=== PATIENT | female | born 1975 | race African-American/Black ===

== ENCOUNTER → 2017-01-24 | Day surgery (SDC) | payer OTHER, SELFPAY ==
[~2017-01-24] MED LIST: FERROUS SULFATE PO; METHIMAZOLE10 MG PO; PROPRANOLOL HCL10 M1 PO; TYLENOL WITH C1 EACH PO
--- NOTE | ~2017-01-24 | OR ---
Unit #: [id number] #: [id number] Patient: HARSHIL VALIENTE [id number] [address] [place], [place] [address] [id number] O MR#: [id number] NAME: HARSHIL VALIENTE ROOM: Date of Procedure: 01/24/2017 Admission Date: 01/24/2017 Surgeon: Mikey Caban M.D. : 1975 Attending Physician: Mikey Caban M.D. Referring Physician: Mikey Caban M.D. Primary Care Physician: Ruth Huitron M.D. OPERATIVE REPORT PREOPERATIVE DIAGNOSES The patient presented with history of iron deficiency anemia, anemia of chronic gastrointestinal blood loss. In addition, she has history of presence of blood in the stool. PROCEDURES PERFORMED Upper gastrointestinal endoscopy and colonoscopy with internal hemorrhoidal band ligation. POSTOPERATIVE DIAGNOSES For upper endoscopy: 1. Completely normal examination up to third part of duodenum. For colonoscopy: 1. The patient had medium-sized internal hemorrhoids seen at the anal verge. Two of these were treated using internal hemorrhoidal band ligation. 2. Rest of the examination up to cecum and terminal ileum was normal. The quality of the prep was excellent. RECOMMENDATIONS 1. The patient is advised to avoid straining of the stool for the next couple of days. In addition, she will use p.r.n. Dulcolax and pain medicine in the form of hydrocodone/acetaminophen in case of any rectal pain. 2. She will be followed up in the office in 3 to 4 months' time. SEDATION USED MAC. DESCRIPTION OF PROCEDURE Following detailed explanation of potential risks and complications of an upper endoscopy and a colonoscopy, namely perforation, bleeding, and complications related to sedation, the patient was brought to GI lab and laid in the left lateral decubitus position. Lubricated tip of the Olympus video upper endoscope was passed through the bite block into the proximal esophagus under direct vision. The entire esophageal mucosa was examined and appeared normal. Z-line was nicely demarcated, there being no esophagitis or hiatus hernia. The scope was then advanced into the gastric cavity and the latter was insufflated. Mucosa of the fundus, body, and antrum examined and appeared unremarkable. Pylorus was intubated with visualization of the normal duodenal bulb and second and third part of the duodenum. Upon withdrawal and retroflexion, incisura, Unit #: [id number] #: [id number] Patient: HARSHIL VALIENTE cardia, and greater curve examined and no additional findings noted. The scope was then withdrawn in the distal esophagus. The entire esophageal mucosa was examined all the way up to pharynx. No additional findings noted. The examination table was then turned by 180 degrees and the patient was positioned for a colonoscopy. A digital rectal examination was performed, which was normal. Lubricated tip of the Olympus video colonoscope was inserted through the anus and advanced under direct vision. The scope was advanced and passed up to sigmoid into descending colon. No diverticula were noticed in this area. The scope tip was then navigated all the way up to cecum with visualization of the ileocecal valve and the appendiceal orifice. Preparation was excellent with good visualization and photodocumentation was obtained. Last several inches of the terminal ileum also visualized after intubation of the ileocecal valve and appeared normal. Successive segments of the colonic mucosa were examined upon withdrawal and appeared unremarkable. There being no polyps, mass lesions, AVMs, or diverticula. The patient was noted to have medium-sized internal hemorrhoids noted, both on the antegrade examination as well as during retroflexion in the rectum. The scope was then withdrawn. The decision was then made to proceed with internal hemorrhoid band ligation. A rapid shooter band ligator assembly was mounted on the scope. The patient was reintubated in the retroflexed position. Two of the internal hemorrhoids were treated using rubber band ligation. Excellent hemostasis was achieved and photodocumentation was obtained. The scope was then withdrawn. The patient returned to recovery area. She tolerated the procedure without any postprocedure complications. Dictated by... Juliana Hale/josee TD: 01/25/2017 08:00 JOB #: [id number] OPERATIVE REPORT Page 1 of 1 X Mikey Caban MD X PROCEDURE OPERATIVE NOTE
== END | disposition home or self-care (01) ==
LOC: COPS 06:44
DX: D50.0 Iron deficiency anemia secondary to blood loss (chronic) (principal); K92.1 Melena; K64.8 Other hemorrhoids; E11.9 Type 2 diabetes mellitus without complications; Z85.3 Personal history of malignant neoplasm of breast; F17.200 Nicotine dependence, unspecified, uncomplicated; Z90.11 Acquired absence of right breast and nipple
CPT/HCPCS: 84703

== ENCOUNTER 2017-04-05 18:19 | Emergency (ER) | payer OTHER, SELFPAY ==
--- NOTE | ~2017-04-05 | CT4 ---
[facility] A Service of [facility] & [facility] RADIOLOGY TEXT RESULTS PATIENT: HARSHIL VALIENTE LOCATION: [facility] : [birth year] UNIT #: [id number] AGE: [address]: Ofelia Soliz MD SEX: F ORDER DR: [id number] [facility] [address] [place], [place] [address] [id number] E MR#: [id number] Acc #: [id number] NAME: HARSHIL VALIENTE : 1975 SEX: F STUDY DATE/TIME: 04/05/2017 21:52 UNIT: [facility] ROOM: STUDY DESCRIPTION: CT Abd and Pelv Wo Cont Attending Physician: Ofelia Soliz M.D. Ordering Physician: Ofelia Soliz M.D. Primary Care Physician: Ruth Huitron M.D. MEDICAL IMAGING REPORT This report is preliminary unless electronic signature is present EXAM CT of the abdomen and pelvis without contrast media. HISTORY Nausea, fever, body aches for 2 days. TECHNIQUE Axial imaging of the abdomen and pelvis was performed without contrast media. This CT exam was performed with one or more of the following radiation dose reduction techniques: Automatic exposure control, adjustment of mA and/or kV according to patient size, and iterative reconstruction. FINDINGS Lung bases were clear. Liver, spleen, gallbladder, pancreas, adrenal glands and both kidneys have a normal appearance. No dilated or thickened loops of bowel are identified in the abdomen or pelvis. Uterus is enlarged and there are leiomyomata. One at least is calcified. A small amount of free fluid is seen in the cul-de-sac. No obvious adnexal masses or fluid collections are identified. CONCLUSION 1. Enlarged uterus with likely multiple leiomyomata. At least 1 of these is densely calcified. 2. Trace fluid in the cul-de-sac which can be seen physiologically. CT of the abdomen and pelvis is otherwise normal. Dictated by... Harsh Wright M.D. THIS IS AN ELECTRONICALLY VERIFIED REPORT Harsh Wright M.D. at 04/06/2017 6:08 PM [facility] A Service of [facility] & [facility] RADIOLOGY TEXT RESULTS PATIENT: HARSHIL VALIENTE LOCATION: [facility] : [birth year] UNIT #: [id number] AGE: [address]: Ofelia Soliz MD SEX: F ORDER DR: Bet[place] TD: 04/06/2017 07:59 JOB #: [id number] MEDICAL IMAGING REPORT Page 1 of 1 COPY
[2017-04-05 20:25] LABS: BASOPHIL% 0.2 % (0-2.5); HEMATOCRIT 34.6 % (35.0-45.0); HEMOGLOBIN 11.4 gm/dL (12.0-16.0); LYMPHOCYTE# 0.9 X10e3 (1.0-3.5); LYMPHOCYTE% 5.1 % (17.0-45.0); MEAN CELL VOLUME 83.2 FL (83-96); MEAN CORPUSCULAR HEMOGLOBIN 27.5 PG (28-34); MEAN CORPUSCULAR HGB CONC 33.1 g/dL (30-36); MEAN PLATELET VOLUME 10.5 FL (6.5-11.5); MONOCYTE# 0.8 X10e3 (0-1.0); MONOCYTE% 4.7 % (3.0-12.0); NEUTROPHIL# 16.1 X10e3 (1.5-7.1); PLATELET COUNT 160 X10e3 (140-420); RED BLOOD COUNT 4.16 X10e (3.90-5.30); RED CELL DISTRIBUTION WIDTH 13.6 % (11.0-15.5); WHITE BLOOD COUNT 17.9 X10e3 (4.0-10.5)
[2017-04-05 20:28] LABS: DIFF IND YES
[2017-04-05 20:42] LABS: PLATELET ESTIMATE NORMAL (NORMAL)
[2017-04-05 20:53] LABS: ALBUMIN SERUM 3.8 g/dL (3.5-5.0); BILIRUBIN, DIRECT 0.2 mg/dL (0.0-0.2); BILIRUBIN,INDIRECT 0.6 mg/dL (0.0-0.9); BILIRUBIN,TOTAL 0.8 mg/dL (0.2-2.0); BUN/CREATININE RATIO 17.64; CALCIUM SERUM 7.9 mg/dL (8.4-10.2); CREATININE SERUM 1.7 mg/dL (0.6-1.4); PROTEIN TOTAL SERUM 8.4 g/dL (6.0-8.3)
[2017-04-05 20:54] LABS: POTASSIUM 2.8 mmol/L (3.5-5.1)
[2017-04-05 21:48] LABS: URINE SOURCE CLEAN CATCH
[2017-04-05 21:59] LABS: URINE APPEARANCE CLOUDY; URINE BILIRUBIN NEG (NEG); URINE BLOOD 1+ (NEG); URINE COLOR DK YELLOW; URINE GLUCOSE NEG (NEG); URINE KETONE NEG (NEG); URINE LEUKOCYTE ESTERASE NEG (NEG); URINE NITRATE NEG (NEG); URINE PH 5.5 (5-8); URINE PROTEIN 2+ (NEG); URINE SPECIFIC GRAVITY 1.025 (1.003-1.035)
[2017-04-05 22:04] LABS: CULTURE INDICATED? YES; URBCS1 AUWI 0-2 /[HPF] (0-2); URINE BACTERIA AUWI 1+ (NEGATIVE); URINE SQUAMOUS EPITHELIAL CELL FEW /[HPF]
[2017-04-09 08:19] LABS: CHLAMYDIA TRACH Not Detected (Not Detected); N GONOR Not Detected (Not Detected)
== END 2017-04-06 02:20 | disposition home or self-care (01) ==
LOC: CED 18:19
PROVIDERS: Emergency Medicine
DX: N73.0 Acute parametritis and pelvic cellulitis (principal); E03.9 Hypothyroidism, unspecified; F17.210 Nicotine dependence, cigarettes, uncomplicated
CPT/HCPCS: 74176; 80048; 80076; 81003; 83690; 84703; 85025; 87086; 87491; 87591; 87808; 87905; 96361; 96365; 96367; 96372; 96375; 99284; J0696; J2270; J2405